=== PATIENT | female | born 1980 | race Hispanic/Latino ===

== ENCOUNTER 2018-12-30 06:45 | Emergency (ER) | payer SELFPAY ==
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
[2018-12-30] MEDS ORDERED: HYDROCODONE/APAP 7.5/325 MG TAB ONE (07:49)
[2018-12-30] MEDS ORDERED: AMOX/K CLAV 875 MG TAB ONE (07:49)
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
[2018-12-30 08:28] VITALS: BP 118/64; TEMP 98.5; O2SAT 100
== END 2018-12-30 08:05 | disposition home or self-care (01) ==
LOC: ER 06:45
DX: S02.2XXA Fracture of nasal bones, initial encounter for closed fracture (principal); V49.50XA Passenger injured in collision with unspecified motor vehicles in traffic accident, initial encounter
CPT/HCPCS: 70450; 70486; 72125; 76377; 99284